=== PATIENT | female | born 1955 | race Caucasian/White ===

== ENCOUNTER → 2016-12-30 | Outpatient (CLI) | payer OTHER ==
--- NOTE | 2016-12-30 09:43 | US ---
EXAM DESCRIPTION: Gall Bladder CLINICAL HISTORY: RUQ PAIN COMPARISON: None. TECHNIQUE: Routine sonographic images of the right upper quadrant of the abdomen were acquired and submitted for review. FINDINGS: Liver: Normal in size and echogenicity. Bile ducts- Intrahepatic and extrahepatic bile ducts not dilated with common bile duct measuring 5 mm. Gallbladder: Normal without sludge, calculi, or polyps. The gallbladder wall is normal. Pancreas: Visualized portions are unremarkable. Right kidney: normal. Aorta & Inferior vena cava: visualized portions appear normal Ascites: none IMPRESSION: Unremarkable right upper quadrant abdominal ultrasound. Electronically signed by: Neal Hardin MD 12/30/2016 9:42 AM CDT
== END | disposition home or self-care (01) ==
LOC: US 16:51
PROVIDERS: ATTEND Family Medicine
DX: R10.11 Right upper quadrant pain (principal)

== ENCOUNTER 2018-02-07 13:31 | Emergency (ER) | payer OTHER ==
[2018-02-07] MEDS ORDERED: KETOROLAC TROMETHAMINE INJ 30 MG/ML VIAL IM ONE (14:18)
--- NOTE | 2018-02-07 14:21 | ED.PDOC ---
History of Present Illness - General Chief Complaint: Lower Extremity Injury Stated Complaint: Left hip pain Time Seen by Provider: 02/07/18 13:52 Source: patient Exam Limitations: no limitations - History of Present Illness Initial Comments: Patient presents with left hip pain for 4 days. Sudden onset. Radiates down the lateral left thigh. Sharp in nature. Worse with movement. Better with rest and a heating pain. No lower back pain. No saddle anesthesia nor urinary incontinence. Denies previous episodes. No other complaints. Timing/Duration: other - 4 days Severity: mild Improving Factors: rest Worsening Factors: movement Associated Symptoms: denies symptoms Allergies/Adverse Reactions: Allergies Penicillins Allergy (Verified 04/23/14 14:48) Promethazine [From Phenergan] Allergy (Verified 04/23/14 14:48) Home Medications: Ambulatory Orders Cyclobenzaprine HCl [Flexeril] 10 mg PO TID #20 tab 02/07/18 Tramadol HCl 50 mg PO Q6HRS #30 tab 02/07/18 Review of Systems - Review of Systems Constitutional: States: no symptoms reported EENTM: States: no symptoms reported Respiratory: States: no symptoms reported Cardiology: States: no symptoms reported Gastrointestinal/Abdominal: States: no symptoms reported Genitourinary: States: no symptoms reported Musculoskeletal: States: see HPI Skin: States: no symptoms reported Neurological: States: no symptoms reported Endocrine: States: no symptoms reported Hematologic/Lymphatic: States: no symptoms reported Past Medical History (General) - Patient Medical History Hx Seizures: No Hx Stroke: No Hx Dementia: No Hx Asthma: No Hx of COPD: No Hx Cardiac Disorders: No Hx Congestive Heart Failure: No Hx Pacemaker: No Hx Hypertension: No Hx Thyroid Disease: No Hx Diabetes: Yes - NIDDM Hx Gastroesophageal Reflux: Yes Hx Renal Disease: No Hx of HIV: No Hx MRSA: No - Vaccination History Hx Influenza Vaccination: Yes - Social History Hx Tobacco Use: No Family Medical History - Family History Mother Family History: No Known Physical Exam - Physical Exam General Appearance: Alert Respiratory: lungs clear, normal breath sounds Cardiovascular/Chest: normal peripheral pulses, regular rate, rhythm, no edema Gastrointestinal/Abdominal: normal bowel sounds, non tender, soft Extremity: normal range of motion, non-tender, other - Straight leg raise positive at 60 degrees. Cross-leg raise negative. Neurologic: no motor/sensory deficits, alert DTR: 2+: Patellar, left, Patellar, right Progress - Progress Progress: 02/07/18 14:56 Radiographs of the left hip showed no fractures nor dislocations. Patient given RX for Flexeril and Tramadol as well as warnings not to use those before driving or operating dangerous machinery. Care instructions given. E.R. warnings given. Questions were elicited and answered. The patient voiced understanding and agreement with the plan. Departure - Departure Clinical Impression: Hip pain, left, Sciatica Disposition: Discharge to Home or Self Care Condition: Good Departure Forms: ED Discharge - Pt. Copy, Patient Portal Self Enrollment Instructions: DI for Leg Pain Diet: other - as per your regular doctor Referrals: Jay Reeves MD [Primary Care Provider] - 1-2 Weeks Prescriptions: Tramadol HCl 50 mg PO Q6HRS #30 tab Cyclobenzaprine HCl [Flexeril] 10 mg PO TID #20 tab Home Medications: Ambulatory Orders Cyclobenzaprine HCl [Flexeril] 10 mg PO TID #20 tab 02/07/18 Tramadol HCl 50 mg PO Q6HRS #30 tab 02/07/18 Additional Instructions: Take medications as prescribed. Do not use the medications before driving or operating dangerous or heavy machinery. Refrain from lifting more than 20 pounds for two weeks then return to normal activity as tolerated. See your regular doctor if pain has not improved in two weeks or has not resolved in 4-6 weeks.
[2018-02-07 14:25] VITALS: TEMP 97.6
--- NOTE | 2018-02-07 14:34 | RAD ---
PROCEDURE: Hip,Left 2 Views Clinical History: left hip pain for 4 days, no fall Indication: Same as above Comparison: None. Technique: Two views of the left hip. Findings: There is no evidence of acute fractures or dislocations involving the bones of the left hip joint and the adjacent pelvic bones. There are no visualization of radiopaque foreign bodies visualized in the soft tissues. The bone mineralization is normal for patient's age and sex. The left greater trochanter region is unremarkable. The left femoroacetabular hip joint space is well-maintained. There are no periosteal reactions. The soft tissues are radiographically unremarkable. Impression: Unremarkable left hip joint Location of Interpretation: Teleradiology Electronically signed by: Michael Del Cid MD 02/07/2018 2:32 PM CDT Workstation: [employer]
[2018-02-07 15:53] VITALS: BP 152/91; O2SAT 97
== END 2018-02-07 15:30 | disposition home or self-care (01) ==
LOC: ER 13:31
DX: M25.552 Pain in left hip (principal); M54.32 Sciatica, left side; Z88.0 Allergy status to penicillin; Z88.8 Allergy status to other drugs, medicaments and biological substances; E11.9 Type 2 diabetes mellitus without complications; K21.9 Gastro-esophageal reflux disease without esophagitis
CPT/HCPCS: 73502; J1885

== ENCOUNTER → 2019-10-04 | Outpatient (CLI) | payer OTHER | LOC: GMA MATASK 11:16 | PROVIDERS: ATTEND Family Medicine | DX: E11.9 Type 2 diabetes mellitus without complications (principal) ==

== ENCOUNTER 2020-04-02 05:39 | Day surgery (SDC) | payer MEDICARE, OTHER ==
[2020-04-02] MEDS ORDERED: TROP1%/CYCLOPEN 1%/PHENYL 2.5% DROPS OPHTH ONE (05:40)
[2020-04-02] MEDS ORDERED: PROPARACAINE 0.5% OPHTH SOL 15 ML BTTL LEFT_EYE ONE (08:50)
[2020-04-02] MEDS ORDERED: MIDAZOLAM INJ 2 MG/2 ML VIAL ONE ×2 (08:50→09:00)
[2020-04-02] MEDS ORDERED: MOXIFLOXACIN HCL (OPHTH) 1 DROP DROPS LEFT_EYE ONE ×2 (08:59→09:08)
[2020-04-02] MEDS ORDERED: LIDOCAINE 1% MPF 2 ML VIAL INJ ONE (08:59)
[2020-04-02] MEDS ORDERED: TOBRAMYCIN SULF 0.3 % OPHT SOL 1 DROP LEFT_EYE ONE ×2 (08:59→09:08)
[2020-04-02] MEDS ORDERED: DEXAMETHASONE 0.1% OPHTH SOL 1 DROP LEFT_EYE ONE ×2 (08:59→09:08)
[2020-04-02] MEDS ORDERED: BRIMONIDINE 0.2% OPHTH DROPS LEFT_EYE ONE ×2 (09:00→09:08)
== END 2020-04-02 10:05 | disposition home or self-care (01) ==
LOC: AMB 05:39
PROVIDERS: ATTEND Ophthalmology
DX: E11.36 Type 2 diabetes mellitus with diabetic cataract (principal); H25.12 Age-related nuclear cataract, left eye; Z88.0 Allergy status to penicillin; Z88.8 Allergy status to other drugs, medicaments and biological substances; Z79.84 Long term (current) use of oral hypoglycemic drugs; Z79.899 Other long term (current) drug therapy
CPT/HCPCS: 00142; 36416; 66984; 82948; J2250

== ENCOUNTER 2020-04-16 05:06 | Day surgery (SDC) | payer MEDICARE, OTHER ==
[2020-04-16] MEDS ORDERED: TROP1%/CYCLOPEN 1%/PHENYL 2.5% DROPS OPHTH ONE (05:07)
[2020-04-16] MEDS ORDERED: MIDAZOLAM INJ 2 MG/2 ML VIAL ONE ×2 (08:11→11:02)
[2020-04-16] MEDS ORDERED: DEXAMETHASONE 0.1% OPHTH SOL 1 DROP RIGHT_EYE ONE ×2 (10:35→10:52)
[2020-04-16] MEDS ORDERED: MOXIFLOXACIN HCL (OPHTH) 1 DROP DROPS RIGHT_EYE ONE ×2 (10:35→10:52)
[2020-04-16] MEDS ORDERED: LIDOCAINE 1% 2 ML VIAL INJ ONE ×2 (10:35→10:52)
[2020-04-16] MEDS ORDERED: PROPARACAINE 0.5% OPHTH SOL 15 ML BTTL RIGHT_EYE ONE ×2 (10:35→10:52)
[2020-04-16] MEDS ORDERED: TOBRAMYCIN SULF 0.3 % OPHT SOL 1 DROP RIGHT_EYE ONE ×2 (10:36→10:52)
[2020-04-16] MEDS ORDERED: BRIMONIDINE 0.2% OPHTH DROPS RIGHT_EYE ONE ×2 (10:36→10:52)
== END 2020-04-16 11:42 | disposition home or self-care (01) ==
LOC: AMB 05:06
PROVIDERS: ATTEND Ophthalmology
DX: E11.36 Type 2 diabetes mellitus with diabetic cataract (principal); H25.11 Age-related nuclear cataract, right eye; I10 Essential (primary) hypertension; Z88.0 Allergy status to penicillin; Z88.8 Allergy status to other drugs, medicaments and biological substances; Z79.4 Long term (current) use of insulin; Z79.899 Other long term (current) drug therapy
CPT/HCPCS: 00142; 36416; 66984; 82948; J2250

== ENCOUNTER → 2020-06-20 | Outpatient (CLI) | payer MEDICARE, OTHER | LOC: GMA MATASK 14:55 | PROVIDERS: ATTEND Family Medicine | DX: I10 Essential (primary) hypertension (principal); E11.42 Type 2 diabetes mellitus with diabetic polyneuropathy ==